=== PATIENT | male | born 1960 | race Caucasian/White ===

== ENCOUNTER 2024-05-22 17:12 | Emergency (ER) | payer BC, OTHER ==
[2024-05-22 17:22] LABS: Glucose,Whole Blood 171 mg/dL (70-110)
--- NOTE | 2024-05-22 17:22 | ED ---
Altered Mental Status HPI - General Chief Complaint: Neuro Symptoms/Deficit Stated Complaint: STROKE Source: patient, EMS, RN notes reviewed, old records reviewed Mode of arrival: EMS Limitations: no limitations - History of Present Illness Initial Comments: This 64-year-old male to the ER for evaluation today. Patient was at home when he was in the bathroom and family heard a fall he then came out of the bathroom and was difficult to arouse respond and became further altered. Family called EMS is negative patient's recent cancer diagnosis and he is brought to the ER under code stroke. Patient is unable to provide any history or communication here in the emergency department MD Complaint: altered mental status, confusion, decreased responsiveness -: hour(s) Severity: severe Consistency of Symptoms: getting worse Context: alcohol abuse (History of), other (Recent cancer diagnosis) Associated Symptoms: denies other symptoms Treatments Prior to Arrival: oxygen - Related Data Previous Rx's Medication Instructions Recorded Folic Acid 1 mg PO DAILY #30 tablet 09/24/14 Thiamine [Vitamin B-1] 100 mg PO DAILY@1200 #30 tablet 09/24/14 HYDROcodone/APAP 5-325MG [[place] 5] 1 each PO Q4HR PRN #30 tab 02/25/15 Allergies Allergy/AdvReac Type Severity Reaction Status Date / Time No Known Allergies Allergy Verified 09/21/14 17:02 Review of Systems ROS Statement: Those systems with pertinent positive or pertinent negative responses have been documented in the HPI. ROS Other: All systems not noted in ROS Statement are negative. Past Medical History Past Medical History: No Reported History History of Any Multi-Drug Resistant Organisms: None Reported Past Surgical History: No Surgical Hx Reported Past Anesthesia/Blood Transfusion Reactions: No Reported Reaction Past Psychological History: No Psychological Hx Reported Past Alcohol Use History: Abuse, Daily, Heavy Past Drug Use History: None Reported General Exam Limitations: altered mental status, physical limitation General appearance: obtunded, in distress Head exam: Present: atraumatic, normocephalic, normal inspection Eye exam: Present: normal appearance, PERRL, EOMI. Absent: scleral icterus, conjunctival injection, periorbital swelling ENT exam: Present: normal exam, mucous membranes moist Neck exam: Present: normal inspection. Absent: tenderness, meningismus, lymphadenopathy Respiratory exam: Present: respiratory distress, wheezes, accessory muscle use, decreased breath sounds, prolonged expiratory. Absent: rales, rhonchi, stridor Cardiovascular Exam: Present: regular rate, tachycardia, irregular rhythm, normal heart sounds. Absent: systolic murmur, diastolic murmur, rubs, gallop, clicks GI/Abdominal exam: Present: soft, normal bowel sounds. Absent: distended, tenderness, guarding, rebound, rigid Extremities exam: Present: normal inspection, full ROM, normal capillary refill. Absent: tenderness, pedal edema, joint swelling, calf tenderness Back exam: Present: normal inspection Neurological exam: Present: alert, oriented X3, CN II-XII intact Psychiatric exam: Present: normal affect, normal mood Skin exam: Present: warm, dry, intact, normal color. Absent: rash Course Vital Signs 05/22/24 05/22/24 05/22/24 17:16 17:25 17:35 Pulse Rate 128 H 125 H 105 H Respiratory 17 Rate Blood Pressure 206/103 192/112 130/117 O2 Sat by Pulse 89 L 92 L 90 L Oximetry Fraction of Inspired Oxygen (FIO2) 05/22/24 05/22/24 05/22/24 17:50 18:05 18:15 Pulse Rate 140 H 90 86 Respiratory 24 24 25 H Rate Blood Pressure 195/140 149/95 174/114 O2 Sat by Pulse 90 L 83 L 98 Oximetry Fraction of 100 Inspired Oxygen (FIO2) 05/22/24 05/22/24 05/22/24 18:16 18:30 18:45 Pulse Rate 82 90 Respiratory 16 16 Rate Blood Pressure 165/102 154/93 O2 Sat by Pulse 97 100 Oximetry Fraction of 100 Inspired Oxygen (FIO2) 05/22/24 05/22/24 05/22/24 19:00 19:30 20:00 Pulse Rate 89 90 93 Respiratory 17 20 20 Rate Blood Pressure 148/90 146/89 147/88 O2 Sat by Pulse 100 100 100 Oximetry Fraction of Inspired Oxygen (FIO2) 05/22/24 20:30 Pulse Rate 98 Respiratory 20 Rate Blood Pressure 158/88 O2 Sat by Pulse 100 Oximetry Fraction of Inspired Oxygen (FIO2) - Reevaluation(s) Reevaluation #1: 05/22/24 18:14 Medical records reviewed Reevaluation #2: 05/22/24 18:14 Patient will need to be intubated for airway protection respiratory failure Patient condition condition is significantly deteriorating quickly here in the emergency department Reevaluation #3: 05/22/24 18:15 Family informed of results There is no living will or DURABLE POWER OF TECHNOLOGY SPECIALIST Family understands grave prognosis Reevaluation #4: Was pt. sent in by a medical professional or institution (RICKY Valle, POULTRY EVISCERATOR, urgent care, hospital, or [place] [facility] facility...) When possible be specific @ -no Did you speak to anyone other than the patient for history (EMS, parent, family, police, friend...)? What history was obtained from this source @ -no Did you review nursing and triage notes (agree or disagree)? Why? @ -agree Are old charts reviewed (outside hosp., previous admission, EMS record, old EKG, old radiological studies, urgent care reports/EKG's, [place] [facility] records)? Report findings @ -yes Differential Diagnosis (chest pain, altered mental status, abdominal pain women, abdominal pain men, vaginal bleeding, weakness, fever, dyspnea, syncope, headache, dizziness, GI bleed, back pain, seizure, CVA, palpatations, mental health, musculoskeletal)? @ -prior EKG interpreted by me (3pts min.). @ -yes X-rays interpreted by me (1pt min.). @ -yes negative for acute disease CT interpreted by me (1pt min.). @ -Yes positive brainstem hemorrhage IC hemorrhage U/S interpreted by me (1pt. min.). @ -no What testing was considered but not performed or refused? (CT, X-rays, U/S, labs)? Why? @ -none What meds were considered but not given or refused? Why? @ -none Did you discuss the management of the patient with other professionals (professionals i.e. RICKY Valle, POULTRY EVISCERATOR, lab, RT, psych nurse, manager social responsibility, workforce services representative, teacher, chief strategy officer, caseworker intake)? Give summary @ -no Was smoking cessation discussed for >3mins.? @ -no Was critical care preformed (if so, how long)? @ -yes95 Were there social determinants of health that impacted care today? How? (Homelessness, low income, unemployed, alcoholism, drug addiction, transportation, low edu. Level, literacy, decrease access to med. care, prison, rehab)? @ -none Was there de-escalation of care discussed even if they declined (Discuss DNR or withdrawal of care, Hospice)? DNR status @ -no What co-morbidities impacted this encounter? (DM, HTN, Smoking, COPD, CAD, Cancer, CVA, ARF, Chemo, Hep., AIDS, mental health diagnosis, sleep apnea, morbid obesity)? @ -none Was patient admitted / discharged? Hospital course, mention meds given and route, prescriptions, significant lab abnormalities, going to OR and other pertinent info. @ - 64 male to the ER for evaluation of altered mental status. Patient will be admitted for further evaluation and management patient is found to have significant intracranial hemorrhage brainstem with bleeding likely secondary to tumor recent diagnosis of lung cancer, patient will need to be transferred for emergent surgical intervention Transferred Undiagnosed new problem with uncertain prognosis? @ -no Drug Therapy requiring intensive monitoring for toxicity (Heparin, Nitro, Insulin, Cardizem)? @ -no Were any procedures done? @ -Intubation Diagnosis/symptom? @ -Altered mental status Acute, or Chronic, or Acute on Chronic? @ -Acute Uncomplicated (without systemic symptoms) or Complicated (systemic symptoms)? @ -Complicated Side effects of treatment? @ -no Exacerbation, Progression, or Severe Exacerbation? @ -exacerbation Poses a threat to life or bodily function? How? (Chest pain, [place], [place], pneumonia, PE, COPD, DKA, ARF, appy, cholecystitis, CVA, Diverticulitis, Homicidal, Suicidal, threat to staff... and all critical care pts) @ -yes significant hemorrhage in the brain and significant difficulty achieving transfer for the patient Reevaluation #5: Differential Altered Mental Status: Hypoglycemia, DKA, hypercapnia, ETOH, overdose, CO poisoning, trauma, myxedema c garrett, HTN encephalopathy, infection, encephalitis, psychosis, intercranial hemorrhage, hepatic encephalopathy, meningitis, CVA, this is not meant to be an all-inclusive list - Consultations Consultation #1: Spoke with [facility] who accepts transfer Consultation #2: Spoke with multiple different hospitals were denying transfer including [facility] Procedures - Intubation Sedative: Versed Laryngoscope: Vj Size: 4 ET Tube Size: 8 ET Tube Uncuffed: No Tube Secured Location: teeth Tube Placement Confirmation: visualized tube passing through cords, equal breath sounds bilaterally, no breath sounds over epigastrium, confirmation by capnometry Patient Tolerated Procedure: well Intubation Complications: none Medical Decision Making - Medical Decision Making 64 male to the ER for evaluation of altered mental status. Patient will be admitted for further evaluation and management patient is found to have significant intracranial hemorrhage brainstem with bleeding likely secondary to tumor recent diagnosis of lung cancer, patient will need to be transferred for emergent surgical intervention - Lab Data Result diagrams: 05/22/24 17:22 05/22/24 17:22 Lab Results 05/22/24 05/22/24 05/22/24 Range/Units 17:21 17:22 17:22 WBC 11.4 H (3.8-10.6) k/uL RBC 2.93 L (4.30-5.90) m/uL Hgb 8.7 L (13.0-17.5) gm/dL Hct 27.5 L (39.0-53.0) % MCV 93.8 (80.0-100.0) fL MCH 29.6 (25.0-35.0) pg MCHC 31.5 (31.0-37.0) g/dL RDW 16.3 H (11.5-15.5) % Plt Count 715 H (150-450) k/uL MPV 7.3 Neutrophils % 92 % Lymphocytes % 3 % Monocytes % 4 % Eosinophils % 0 % Basophils % 0 % Neutrophils # 10.5 H (1.3-7.7) k/uL Lymphocytes # 0.3 L (1.0-4.8) k/uL Monocytes # 0.4 (0-1.0) k/uL Eosinophils # 0.0 (0-0.7) k/uL Basophils # 0.0 (0-0.2) k/uL Hypochromasia Marked Anisocytosis Slight PT 12.1 (10.0-12.5) sec INR 1.1 (<1.2) APTT 30.2 H (22.0-30.0) sec D-Dimer 1.16 H (<0.60) mg/L FEU Sample Site ABG pH (7.35-7.45) ABG pCO2 (35-45) mmHg ABG pO2 (83-108) mmHg ABG HCO3 (21-25) mmol/L ABG Total CO2 (19-24) mmol/L ABG O2 Saturation (94-97) % ABG Base Excess mmol/L Seth Test Hemoglobin (13.0-17.5) gm/dL FiO2 % Sodium (137-145) mmol/L Potassium (3.5-5.1) mmol/L Chloride (98-107) mmol/L Carbon Dioxide (22-30) mmol/L Anion Gap mmol/L BUN (9-20) mg/dL Creatinine (0.66-1.25) mg/dL Est GFR (CKD-EPI)AfAm (>60 ml/min/1.73 sqM) Est GFR (CKD-EPI)NonAf (>60 ml/min/1.73 sqM) Glucose (74-99) mg/dL POC Glucose (mg/dL) 171 H (70-110) mg/dL POC Glu Financial Rep ID Bryce Daniel Plasma Lactic Acid Jeferson (0.7-2.0) mmol/L Calcium (8.4-10.2) mg/dL Phosphorus (2.5-4.5) mg/dL Magnesium (1.6-2.3) mg/dL Total Bilirubin (0.2-1.3) mg/dL AST (17-59) U/L ALT (4-49) U/L Alkaline Phosphatase (38-126) U/L Ammonia (<30) umol/L Troponin I (0.000-0.034) ng/mL NT-Pro-B Natriuret Pep pg/mL Total Protein (6.3-8.2) g/dL Albumin (3.5-5.0) g/dL Serum Alcohol mg/dL 05/22/24 05/22/24 05/22/24 Range/Units 17:22 17:22 17:22 WBC (3.8-10.6) k/uL RBC (4.30-5.90) m/uL Hgb (13.0-17.5) gm/dL Hct (39.0-53.0) % MCV (80.0-100.0) fL MCH (25.0-35.0) pg MCHC (31.0-37.0) g/dL RDW (11.5-15.5) % Plt Count (150-450) k/uL MPV Neutrophils % % Lymphocytes % % Monocytes % % Eosinophils % % Basophils % % Neutrophils # (1.3-7.7) k/uL Lymphocytes # (1.0-4.8) k/uL Monocytes # (0-1.0) k/uL Eosinophils # (0-0.7) k/uL Basophils # (0-0.2) k/uL Hypochromasia Anisocytosis PT (10.0-12.5) sec INR (<1.2) APTT (22.0-30.0) sec D-Dimer (<0.60) mg/L FEU Sample Site ABG pH (7.35-7.45) ABG pCO2 (35-45) mmHg ABG pO2 (83-108) mmHg ABG HCO3 (21-25) mmol/L ABG Total CO2 (19-24) mmol/L ABG O2 Saturation (94-97) % ABG Base Excess mmol/L Seth Test Hemoglobin (13.0-17.5) gm/dL FiO2 % Sodium 133 L (137-145) mmol/L Potassium 3.7 (3.5-5.1) mmol/L Chloride 102 (98-107) mmol/L Carbon Dioxide 22 (22-30) mmol/L Anion Gap 9 mmol/L BUN 13 (9-20) mg/dL Creatinine 0.39 L (0.66-1.25) mg/dL Est GFR (CKD-EPI)AfAm >90 (>60 ml/min/1.73 sqM) Est GFR (CKD-EPI)NonAf >90 (>60 ml/min/1.73 sqM) Glucose 167 H (74-99) mg/dL POC Glucose (mg/dL) (70-110) mg/dL POC Glu Financial Rep ID Plasma Lactic Acid Jeferson 1.5 (0.7-2.0) mmol/L Calcium 10.1 (8.4-10.2) mg/dL Phosphorus 3.1 (2.5-4.5) mg/dL Magnesium 1.4 L (1.6-2.3) mg/dL Total Bilirubin 0.6 (0.2-1.3) mg/dL AST 19 (17-59) U/L ALT 7 (4-49) U/L Alkaline Phosphatase 126 (38-126) U/L Ammonia <9 (<30) umol/L Troponin I <0.012 (0.000-0.034) ng/mL NT-Pro-B Natriuret Pep 769 pg/mL Total Protein 6.4 (6.3-8.2) g/dL Albumin 3.2 L (3.5-5.0) g/dL Serum Alcohol <10 mg/dL 05/22/24 Range/Units 18:40 WBC (3.8-10.6) k/uL RBC (4.30-5.90) m/uL Hgb (13.0-17.5) gm/dL Hct (39.0-53.0) % MCV (80.0-100.0) fL MCH (25.0-35.0) pg MCHC (31.0-37.0) g/dL RDW (11.5-15.5) % Plt Count (150-450) k/uL MPV Neutrophils % % Lymphocytes % % Monocytes % % Eosinophils % % Basophils % % Neutrophils # (1.3-7.7) k/uL Lymphocytes # (1.0-4.8) k/uL Monocytes # (0-1.0) k/uL Eosinophils # (0-0.7) k/uL Basophils # (0-0.2) k/uL Hypochromasia Anisocytosis PT (10.0-12.5) sec INR (<1.2) APTT (22.0-30.0) sec D-Dimer (<0.60) mg/L FEU Sample Site Right Radial ABG pH 7.41 (7.35-7.45) ABG pCO2 40 (35-45) mmHg ABG pO2 140 H (83-108) mmHg ABG HCO3 25 (21-25) mmol/L ABG Total CO2 27 H (19-24) mmol/L ABG O2 Saturation 99.7 H (94-97) % ABG Base Excess 0.6 mmol/L Seth Test Yes Hemoglobin 7.9 L (13.0-17.5) gm/dL FiO2 100 % Sodium (137-145) mmol/L Potassium (3.5-5.1) mmol/L Chloride (98-107) mmol/L Carbon Dioxide (22-30) mmol/L Anion Gap mmol/L BUN (9-20) mg/dL Creatinine (0.66-1.25) mg/dL Est GFR (CKD-EPI)AfAm (>60 ml/min/1.73 sqM) Est GFR (CKD-EPI)NonAf (>60 ml/min/1.73 sqM) Glucose (74-99) mg/dL POC Glucose (mg/dL) (70-110) mg/dL POC Glu Financial Rep ID Plasma Lactic Acid Jeferson (0.7-2.0) mmol/L Calcium (8.4-10.2) mg/dL Phosphorus (2.5-4.5) mg/dL Magnesium (1.6-2.3) mg/dL Total Bilirubin (0.2-1.3) mg/dL AST (17-59) U/L ALT (4-49) U/L Alkaline Phosphatase (38-126) U/L Ammonia (<30) umol/L Troponin I (0.000-0.034) ng/mL NT-Pro-B Natriuret Pep pg/mL Total Protein (6.3-8.2) g/dL Albumin (3.5-5.0) g/dL Serum Alcohol mg/dL - EKG Data -: EKG Interpreted by Me (EKG Is sinus tach already 122 KS 180 QRS 98 QTc 397) - Radiology Data Radiology results: report reviewed (CT brain C-spine shows mass, chest x-ray shows positive ET tube), image reviewed Critical Care Time Critical Care Time: Yes Total Critical Care Time: 95 Disposition Clinical Impression: Altered mental status, Intracranial hemorrhage, Cerebellar hemorrhage, Metastasis to brain Disposition: OTHER INSTITUTION NOT DEFINED Condition: Critical Is patient prescribed a controlled substance at d/c from ED?: No Referrals: Nonstaff,Physician [Primary Care Provider] - 1-2 days Time of Disposition: 18:20 - Out of Hospital Transfer - Req. Specs Out of Hospital Transfer - Requested Specifics: Other Emergency Center ([facility])
[2024-05-22] MEDS: SODIUM CHLORIDE 0.9% 1,000 ML IV STA (17:30)
[2024-05-22 17:42] LABS: Anisocytosis Slight; Basophils % (A) 0 %; Eosinophils % (A) 0 %; HCT 27.5 % (39.0-53.0); HGB 8.7 gm/dL (13.0-17.5); Hypochromasia Marked; Lymphocytes # (A) 0.3 k/uL (1.0-4.8); Lymphocytes % (A) 3 %; MCH 29.6 pg (25.0-35.0); MCHC 31.5 g/dL (31.0-37.0); MCV 93.8 fL (80.0-100.0); Mean Platelet Volume 7.3; Monocytes # (A) 0.4 k/uL (0-1.0); Monocytes % (A) 4 %; Neutrophils # (A) 10.5 k/uL (1.3-7.7); Neutrophils % (A) 92 %; Platelet Count 715 k/uL (150-450); RBC 2.93 m/uL (4.30-5.90); RDW 16.3 % (11.5-15.5); WBC 11.4 k/uL (3.8-10.6)
[2024-05-22 17:52] LABS: Lactic Acid, Venous 1.5 mmol/L (0.7-2.0)
[2024-05-22 17:54] LABS: INR 1.1 (<1.2); Partial Thromboplastin Time 30.2 sec (22.0-30.0); Prothrombin Time 12.1 sec (10.0-12.5)
[2024-05-22] MEDS: LABETALOL 5 MG/ML VIAL MDV IVP STA (17:54)
[2024-05-22 17:57] LABS: ALT 7 U/L (4-49); AST 19 U/L (17-59); African American GFR (CKD) >90 (>60 ml/min/1.73 sqM); Albumin 3.2 g/dL (3.5-5.0); Alcohol <10 mg/dL; Alkaline Phosphatase 126 U/L (38-126); Anion Gap 9 mmol/L; Blood Urea Nitrogen 13 mg/dL (9-20); Calcium 10.1 mg/dL (8.4-10.2); Carbon Dioxide 22 mmol/L (22-30); Chloride 102 mmol/L (98-107); Glucose 167 mg/dL (74-99); Magnesium 1.4 mg/dL (1.6-2.3); Non-African American GFR(CKD) >90 (>60 ml/min/1.73 sqM); Phosphorus 3.1 mg/dL (2.5-4.5); Potassium 3.7 mmol/L (3.5-5.1); Sodium 133 mmol/L (137-145); Total Bilirubin 0.6 mg/dL (0.2-1.3); Total Protein 6.4 g/dL (6.3-8.2)
--- NOTE | 2024-05-22 17:58 | CT ---
EXAMINATION TYPE: CT brain cspine wo con CT DLP: 1389.9 mGycm, Automated exposure control for dose reduction was used. DATE OF EXAM: 05/22/2024 5:45 PM COMPARISON: None. CLINICAL INDICATION: Male, 64 years old with history of fall; Fall, High BP. Suspected bleed. TECHNIQUE: Brain: Multiple axial CT images of the brain were obtained without IV contrast. Cspine: Axial CT images from the skull base to the inferior aspect of T2 we obtained without intraven ous contrast. Coronal and sagittal reformatted images were also reviewed. . FINDINGS: Brain: Extra-axial spaces: No abnormal extra-axial fluid collections. Ventricular system: High density blood products throughout the ventricles including the cerebral aque duct bilateral lateral ventricles and fourth ventricle. Cerebral parenchyma: No acute intraparenchymal hemorrhage or mass effect. The bates-white junction is well differentiated. Cerebellum: Suspected intraparenchymal hemorrhage of the left cerebellum with compression of the ring centimeters anteriorly into the foramen magnum there is crowding the basilar cisterns. Mass effect: No evidence of midline shift. Intracranial vasculature: Atherosclerotic calcifications of the intracranial vessels. Soft tissues: Normal. Calvarium/osseous structures: No depressed skull fracture. Paranasal sinuses and mastoid air cells: Mild scattered mucosal thickening and or secretions. Visualized orbits: Orbital contents are intact. Cervical spine: Fracture: None. Osseous structures: Lytic lesion measuring up to 25 mm in the C5-6 vertebrae Multilevel degenerative disc disease changes with endplate spurring and disc osteophyte complex's. Vertebral alignment: Within normal limits. Spinal canal/Neural Foramina: No evidence of significant spinal canal narrowing. No evidence for sign ificant neural foraminal stenosis. Neck soft tissues: Prevertebral soft tissues are within normal limits. Other: The airway is patent. Atherosclerosis of the arterial vasculature. IMPRESSION: 1. Left cerebellar hemisphere heterogeneous with blood products in the ventricular system including the cerebral aqueduct. This can predispose this patient hydrocephalus. Additionally The brainstem and cerebellum are being compressed due to the large hemorrhage into the skull base and to the foramen m agnum. Neurosurgical consultation recommended for decompression. Lytic lesion within the spine is pre sent with destruction of a majority of the vertebral body at C6. Findings suggest possible hemorrhagi c mass within the left cerebellum. 2. No evidence of cervical spine fracture. 3. Moderate multilevel degenerative disc disease. Findings communicated to Dr. Helio Torres DO on 05/22/2024 5:[address] Rocky Rivera. [facility], , 05/22/2024 5:56 PM
[2024-05-22 18:03] LABS: NT-Pro-B-Type Natriuretic Pept 769 pg/mL
[2024-05-22] MEDS: CLEVIDIPINE BUTYRATE 25 MG in EMPTY BAG 1 BAG IV SCH (18:05)
[2024-05-22] MEDS: ETOMIDATE 2 MG/ML 10 ML VIAL IVP STA (18:07)
[2024-05-22] MEDS: DEXAMETHASONE SOD PHOSPHATE 10 MG/ML 1 ML VIAL IVP STA (18:34)
[2024-05-22] MEDS: DILTIAZEM 125 MG in SODIUM CHLORIDE 0.9% 100 ML IV SCH (18:42)
[2024-05-22] MEDS: DILTIAZEM DRIP BOLUS FROM BAG 1 MG SOLN IV ONE (18:42)
[2024-05-22 18:44] LABS: ABG Base Excess 0.6 mmol/L; ABG HCO3 25 mmol/L (21-25); ABG Oxygen Saturation 99.7 % (94-97); ABG PCO2 40 mmHg (35-45); ABG PH 7.41 (7.35-7.45); ABG PO2 140 mmHg (83-108); ABG TCO2 27 mmol/L (19-24); Allen Test Performed? Yes
--- NOTE | 2024-05-22 18:45 | XR ---
EXAMINATION TYPE: XR chest 1V portable DATE OF EXAM: 05/22/2024 6:21 PM CLINICAL INDICATION: Male, 64 years old with history of sob; [facility] COMPARISON: Chest radiographs from 02/25/2015 TECHNIQUE: XR chest 1V portable Frontal view of the chest. FINDINGS: Lungs/Pleura: Right perihilar airspace opacities are new from prior. There is no evidence of pleural effusion, focal consolidation, or pneumothorax. Pulmonary vascularity: Unremarkable. Heart/mediastinum: Cardiomediastinal silhouette is unremarkable. Musculoskeletal: No acute osseous pathology. Endotracheal tube approximately 3.9 cm in the angelina. Nasogastric tube in appropriate position. IMPRESSION: Right perihilar airspace opacities correlate for mass versus pneumonia. Endotracheal tube and nasogastric tube in appropriate position. [facility], , 05/22/2024 6:42 PM
[2024-05-22 19:32] VITALS: RESP 20
[2024-05-22 20:31] VITALS: BP 158/88; PULSE 98
== END 2024-05-22 20:31 | disposition other institution (70) ==
LOC: EC 17:12
DX: C79.31 Secondary malignant neoplasm of brain (principal); I61.4 Nontraumatic intracerebral hemorrhage in cerebellum; R41.82 Altered mental status, unspecified
CPT/HCPCS: 36415; 36600; 94002; 93005; 85379; 83880; 80053; 82140; 82805; 83605; 83735; 84100; 84484; 85025; 85610; 85730; 87070; 87205; 71045; 72125; 70450; 99291; 96365; 96366; 96368; 96375 ×2; 96361; G0480; J1100; J2704; C9248; J1920; 80320